=== PATIENT | male | born 1995 | race Two or more races ===

== ENCOUNTER 2023-03-24 04:53 | Emergency (ER) | payer MEDICAID ==
[~2023-03-24] VITALS: Ht 167.6 cm; Wt 75.0 kg
[2023-03-24] MEDS ORDERED: HYDROCODONE/ACETAMINOPHEN 5-325 MG TABLET PO ONE (05:30)
[2023-03-24] MEDS ORDERED: PERTUSS(ACELL),DIPH,TET VAC/PF 0.5 ML SYRINGE IM. ONE (05:30)
[2023-03-24 05:31] VITALS: BP 135/96; PULSE 99; RESP 16; TEMP 98
== END 2023-03-24 05:52 | disposition home or self-care (01) ==
LOC: EMS 04:56
DX: S01.81XA Laceration without foreign body of other part of head, initial encounter (principal); W22.8XXA Striking against or struck by other objects, initial encounter; Y93.89 Activity, other specified; Y92.89 Other specified places as the place of occurrence of the external cause; Y99.8 Other external cause status
CPT/HCPCS: 12004; 90471; 90715; 99283

== ENCOUNTER 2023-04-02 16:22 | Emergency (ER) | payer MEDICAID ==
[~2023-04-02] VITALS: Ht 165.1 cm; Wt 72.7 kg
[2023-04-02 16:26] VITALS: TEMP 98.6
[2023-04-02] MEDS ORDERED: BACITRACIN 0.9 GM PACKET OINTMENT TP ONE (17:00)
[2023-04-02 18:05] VITALS: BP 136/81; PULSE 76; RESP 18
== END 2023-04-02 18:06 | disposition home or self-care (01) ==
LOC: EMS 16:23
DX: S01.01XD Laceration without foreign body of scalp, subsequent encounter (principal); Z48.02 Encounter for removal of sutures; X58.XXXD Exposure to other specified factors, subsequent encounter
CPT/HCPCS: 99281; Z7502; Z7610